=== PATIENT | female | born 1955 | race Caucasian/White ===

== ENCOUNTER → 2021-01-17 | Outpatient (CLI) | payer OTHER ==
[~2021-01-17] MED LIST: ASPIRIN325 PO; FISH OIL 1,001000 M1 PO; FOSAMAX40 MG PO; LIPITOR20 MG PO; MAGNESIUM100 MG PO; MULTIVITAMINS; VITAMIN D400 UNI1 PO; ZOLOFT PO
== END ==
LOC: RAD 13:54
PROVIDERS: ATTEND Internal Medicine Cardiovascular Disease
DX: Z13.6 Encounter for screening for cardiovascular disorders (principal); I25.10 Atherosclerotic heart disease of native coronary artery without angina pectoris; E78.00 Pure hypercholesterolemia, unspecified

== ENCOUNTER → 2021-01-31 | Outpatient (CLI) | payer BC, OTHER | LOC: SJCVCIMAG 10:53 | PROVIDERS: ATTEND Internal Medicine Cardiovascular Disease | DX: I44.7 Left bundle-branch block, unspecified (principal); R01.1 Cardiac murmur, unspecified ==